=== PATIENT | female | born 1975 | race Hispanic/Latino ===

== ENCOUNTER 2018-02-14 07:25 | Day surgery (SDC) | payer BC ==
[~2018-02-14 07:25] MED LIST: ANCEF/STERILE WATER 2 GM/20 ML 2 GM/20 ML SYRINGE IV NR; NACL 0.9% 1000 ML 1,000 ML IV SCH
[2018-02-14 08:36] LABS: Basophils % (Auto) 0.5 % (0.0-1.8); Eosinophils # (Auto) 0.2 K/mm3 (0.0-0.4); Eosinophils % (Auto) 4.2 % (0.0-4.3); Hematocrit 40.3 % (30.3-42.9); Hemoglobin 13.5 gm/dl (10.1-14.3); Lymphocytes # (Auto) 1.5 K/mm3 (1.2-5.4); Lymphocytes % (Auto) 26.5 % (13.4-35.0); Mean Corpuscular HGB Conc 34 % (30-34); Mean Corpuscular Volume 90 fl (79-97); Monocytes # (Auto) 0.5 K/mm3 (0.0-0.8); Monocytes % (Auto) 8.8 % (0.0-7.3); Platelet Count 283 K/mm3 (140-440)
[2018-02-14 08:45] LABS: INR 0.88 (0.87-1.13)
[2018-02-14 08:46] LABS: Partial Thromboplastin Time 21.3 Sec. (24.2-36.6)
[2018-02-14 09:04] LABS: BUN/Creatinine Ratio 24; Blood Urea Nitrogen 17 mg/dL (7-17); Calcium 9.2 mg/dL (8.4-10.2); Hemolysis Index 7
[2018-02-14] MEDS ORDERED: HEPARIN 10,000 UNITS/10 ML ONE (09:12)
[2018-02-14] MEDS ORDERED: HEPARIN/NS 5000 UNIT/500ML(CATH LAB) 1,000 ML IR ONE (09:12)
[2018-02-14] MEDS: SUBLIMAZE ONE ×3 (09:41→10:08)
[2018-02-14] MEDS: XYLOCAINE 2% INFILTRATI ONE ×4 (09:41→09:47)
[2018-02-14] MEDS: VERSED ONE ×3 (09:41→10:08)
[2018-02-14] MEDS ORDERED: TORADOL ONE (09:48)
--- NOTE | 2018-02-14 10:13 | Short Stay Summary ---
Short Stay Documentation Date of service: 02/14/18 - History Principal diagnosis: Venous compression H&P: obtained from office - Allergies and Medications Current Medications: Allergies codeine Allergy (Verified 02/14/18 07:55) Hives morphine Allergy (Verified 02/14/18 07:55) Anaphylaxis Home Medications Medication Instructions Recorded Confirmed Last Taken Type RX: No Known Home Medications [No 02/14/18 02/14/18 Unknown History Reported Home Medications] Active Medications Cefazolin Sodium (Ancef/Sterile Water 2 Gm/20 Ml) 2 gm in 20 mls @ 80 mls/hr IV PREOP NR; Protocol Stop: 02/14/18 23:59 Sodium Chloride (Nacl 0.9% 1000 Ml) 1,000 mls @ 42 mls/hr IV DIRECT ABNER Stop: 02/14/18 23:59 Last Admin: 02/14/18 09:01 Dose: 42 mls/hr Documented by: - Brief post op/procedure progress note Date of procedure: 02/14/18 Pre-op diagnosis: Venous compression Post-op diagnosis: same Procedure: BLE venogram, stent, IVUS, left gonadal vein evaluation Anesthesia: local Surgeon: HE ZAMUDIO Estimated blood loss: minimal Pathology: none Condition: stable - Disposition Condition at discharge: Good Disposition: [id number] TO HOME OR SELFCARE Short Stay Discharge Plan Activity: advance as tolerated Weight Bearing Status: Weight Bear as Tolerated Diet: regular Wound: keep clean and dry, per your surgeon's advice Follow up with: PRIMARY CARE, [Primary Care Provider] - 7 Days
--- NOTE | 2018-02-14 10:22 | Operative Report ---
Operative Report Operative Report: Exam: Bilateral lower extremity venogram, intravascular ultrasound, been a plasty with stent placement and selection and evaluation of the left gonadal vein Clinical indication: Patient with a history of venous compression with exposed intrinsic compression of her common iliac veins by common iliac arteries, pelvic pain and fullness Date: 02/14/2018 Procedure: Following an explanation of the risks, benefits and alternatives; written informed consent was obtained. The patient was brought to the angiogr aphic suite and placed in supine position on the examination table. Initial ultrasound evaluation of her groin demonstrated patent femoral veins proximally. The patient's groins were prepped and draped in usual sterile fashion. 1% lidocaine was used for anesthesia. Under ultrasound guidance, the proximal right femoral vein was cannulated with a 7 cm 18-gauge needle. A 0.035 guidewire was advanced centrally. The needle was removed and a [address] Access to the left proximal femoral vein was obtained in a similar fashion and a second 5 [address] placed. Contrast was injected through the left sheath which demonstrates significant extrinsic compression of the left common iliac vein. Initial evaluation of the left gonadal vein was first performed prior to treatment of the extrinsic compression. A C2 cobra catheter was placed over the 0.035 guidewire from the right sheath. Together the guidewire and catheter were advanced into the IVC. The guidewire was removed and the catheter withdrawn proximally to cannulate the left renal vein. The guidewire was then advanced through the catheter into the left renal vein and manipulated into the left gonadal vein. The C2 catheter was exchanged for a 4 Hebrew vertebral catheter was was advanced over the guidewire to the mid left gonadal vein. Contrast was injected which demonstrates a gonadal vein measuring 3 mm in diameter. There are scattered pelvic varicosities however these are not significant. There is prompt drainage into the internal iliac vein on the left. The catheter was withdrawn proximally. There is no extensor compression of the left renal vein. The 5 telugu sheaths were then upsized over the guidewires for 10 Hebrew sheaths. Intravascular ultrasound was performed through both sheaths. Imaged vessels include the IVC, right common iliac vein, right external iliac vein, right common femoral vein, left common iliac vein, left external iliac vein the left common femoral vein. Intravascular ultrasound demonstrates 70-80% stenosis involving the proximal left common iliac vein and 60-70% stenosis involving the mid right common iliac vein secondary to extrinsic compression from the arteries . Prestenotic dilatation is present on both sides. A 16 mm x 90 mm wall stent was advanced through the right sheath, a 16 x 90 mm wall stent was advanced through the left sheath. The stents were deployed and kissing fashion extending from the distal IVC to the external iliac veins bilaterally to cover both lesions. The stents were then seated using a 14 mm balloon. Placenta deployment imaging demonstrated reduction of the stenoses bilaterally to less than 10%. There is brisk flow of contrast through the pelvis. There appears to be some delay of contrast within the IVC and additional evaluation of the IVC was performed using contrast. There is minimal stenosis involving the intrahepatic portion of the IVC however, this does not appear to be hemodynamically significant. There is some degree of reflux from the heart into the hepatic veins. At this point, the guidewires and sheaths were removed and hemostasis achieved using manual compression. Sterile compression dressings were applied. The patient tolerated the procedure well. There were no immediate post procedure complications. Conscious sedation was performed under the guidance of radiologic nursing. Continuous cardiopulmonary monitoring was utilized. Impression: 1) Lower extremity venogram demonstrating significant compression of the left common iliac vein.2) Selective and sub-selective cannulation of the left renal and left gonadal veins with venography demonstrating no significant dilatation of the left gonadal vein and no extrinsic compression of the left renal vein.3) Intravascular ultrasound of the IVC, bilateral common iliac veins, bilateral external iliac veins and bilateral common femoral veins demonstrating 70-80% stenosis involving the proximal left common iliac vein and 60-70% stenosis involving the mid right common iliac vein with prestenotic dilatation. 4) Treatment of these lesions with 16 mm x 90 mL wall stents deployed in kissing fashion with residual less than 10% stenosis
[2018-02-14] MEDS ORDERED: NORCO 5/325 ONE (10:32)
[2018-02-14] MEDS ORDERED: NORCO 5/325 PO ONE (10:39)
[2018-02-14 11:01] VITALS: BP 124/77
== END 2018-02-14 11:50 | disposition home or self-care (01) ==
LOC: CATHLABREC 07:25
PROVIDERS: ATTEND Radiology Diagnostic Radiology
DX: I87.1 Compression of vein (principal); I87.323 Chronic venous hypertension (idiopathic) with inflammation of bilateral lower extremity; Z79.899 Other long term (current) drug therapy; Z79.01 Long term (current) use of anticoagulants; Z91.040 Latex allergy status; Z88.5 Allergy status to narcotic agent; Z72.89 Other problems related to lifestyle; Z90.710 Acquired absence of both cervix and uterus; Z98.891 History of uterine scar from previous surgery; Z98.890 Other specified postprocedural states
CPT/HCPCS: 36012; 36415; 37238; 37239; 37252; 37253; 75822; 75831; 76937; 80048; 85025; 85610; 85730; 99156; 99157; C1725; C1751; C1753; C1769; C1876; C1894; J1644; J1885; J2250; J3010; J7030; Q9967